=== PATIENT | female | born 1990 | race Caucasian/White ===

== ENCOUNTER 2020-07-27 02:35 | Outpatient (CLI) | payer BC, SELFPAY ==
[2020-07-27 15:46] LABS: HCT 40.8 % (36.0-46.0); HGB 14.2 g/dL (11.2-15.7); MCH 29.8 pg (27.0-33.0); MCHC 34.8 % (32.0-36.0); MCV 85.7 fL (80-95); MPV 9.6 fL (8.0-11.0); Platelet Count 279 10^3/uL (130-400); RBC 4.76 10^6/uL (3.93-5.22); RDW 12.3 % (11.7-14.6); RDW-SD 38.5 fL; WBC 9.68 10^3/uL (4.4-10.8)
[2020-07-27 17:35] LABS: Calculated LDL 105 mg/dL (<100); Cholesterol 196 mg/dL (<200); HDL Cholesterol 51 mg/dL (40-60); TSH 0.67 uIU/mL (0.36-3.74); Triglyceride 202 mg/dL (<150)
== END 2020-07-27 02:36 | disposition home or self-care (01) ==
LOC: LBO 02:35
PROVIDERS: PCP Internal Medicine; Visit Provider Internal Medicine
DX: R53.83 Other fatigue (principal); N92.0 Excessive and frequent menstruation with regular cycle; Z13.220 Encounter for screening for lipoid disorders
CPT/HCPCS: 36415; 80061; 85027; 84443

== ENCOUNTER 2020-08-10 14:56 | Outpatient (REF) | payer BC, SELFPAY ==
--- NOTE | 2020-08-10 14:30 | PAPFT_PTH ---
PATIENT: Ashley Whitfield LOC: [facility] U#:[id number] AGE/SX: 30/F ROOM: RE08/10/[address]: Anna Knight MD : 1990 BED: DIS: 08/10/2020 SPEC #: [id number] RECD: 08/10/20 17:35 STATUS: ROGER REDain #: [id number] CRESCENCIO: 08/10/20 14:[address]: Anna Knight DEPT: [facility] Cytology RECD BY: Kacie Quinonez Tissues: 1 - CX/ENDOCX FOR PAP SMEARS Procedures: PAP THIN PREP/[facility] Screening HPV DNA PROBE Comments: [id number]
== END 2020-08-10 14:57 | disposition home or self-care (01) ==
LOC: LBN 14:56
PROVIDERS: PCP Internal Medicine; Referring Provider Internal Medicine; Visit Provider Internal Medicine
DX: Z12.4 Encounter for screening for malignant neoplasm of cervix (principal); Z11.51 Encounter for screening for human papillomavirus (HPV)
CPT/HCPCS: 88142; 87624